=== PATIENT | male | born 1960 | race Two or more races ===

== ENCOUNTER 2020-09-15 09:01 | Inpatient (IN) | payer OTHER ==
[~2020-09-15] VITALS: Ht 167.6 cm; Wt 98.4 kg
[2020-09-15] MEDS ORDERED: ACETAMINOPHEN 325 MG TAB PO PRN (09:15)
[2020-09-15] MEDS: ENOXAPARIN SOD 40 MG/0.4 ML SYRINGE SC SCH ×2 (10:00→13:33)
[2020-09-15] MEDS ORDERED: LIDOCAINE 2%HCL (LOCAL ANESTH.) INJ 10ml MDV IJ ONE (10:45)
[2020-09-15] MEDS ORDERED: HYDROmorphone HCL 2 MG/ML VL IV ONE (10:45)
[2020-09-15] MEDS ORDERED: ONDANSETRON HCL 4 MG/2 ML VIAL IV PRN (13:15)
[2020-09-15] MEDS ORDERED: MORPHINE SULF INJ 2 MG/ML SYRINGE 1ML IV PRN (13:15)
[2020-09-15 13:57] LABS: Basophils # (auto) 0 10 ^3/uL (0-0.2); Basophils % (auto) 0.5 % (0.0-2.0); Eosinophils # (auto) 0.2 10 ^3/uL (0-0.8); Eosinophils % (auto) 1.8 % (0.0-7.0); Hematocrit 44.7 % (41.0-53.0); Lymphocytes # (auto) 1.9 10 ^3/uL (0.4-5.4); Lymphocytes % (auto) 22.8 % (10.0-50.0); Mean Corpuscular Hemoglobin 33.8 pg (28.0-32.0); Mean Corpuscular Hgb Conc. 35.8 g/dL (32.0-36.0); Mean Corpuscular Volume 94.5 fL (80.0-100.0); Monocytes # (auto) 0.8 10 ^3/uL (0-1.3); Monocytes % (auto) 9.3 % (0.0-12.0); Neutrophils # (auto) 5.5 10 ^3/uL (1.6-8.6); Neutrophils % (auto) 65.6 % (37.0-80.0); Nucleated Red Blood Cells % 0.2 %; Red Blood Cells 4.73 10^6/uL (4.5-5.90); White Blood Cell 8.4 10^3/uL (4.4-10.8)
[2020-09-15 14:12] LABS: INR 1.01 (0.9-1.15)
[2020-09-15 14:16] LABS: Albumin 4.1 g/dL (3.4-5.0); BUN/Creatinine Ratio 16.9; Calcium 8.5 mg/dL (8.5-10.1)
[2020-09-15 14:19] LABS: Bilirubin, Total 0.5 mg/dL (0.2-1.0); Total Protein 7.4 g/dL (6.4-8.2)
[2020-09-15 16:52] VITALS: BP 160/84
[2020-09-15 17:02] VITALS: BP 130/97
[2020-09-15] MEDS: MORPHINE SULF INJ 2 MG/ML SYRINGE 1ML IV PRN (21:43)
[2020-09-15 22:00] VITALS: BP 125/78
[2020-09-16] MEDS: MORPHINE SULF INJ 2 MG/ML SYRINGE 1ML IV PRN ×3 (02:42→07:08)
[2020-09-16 05:00] VITALS: BP 133/69
[2020-09-16 07:09] LABS: Basophils # (auto) 0 10 ^3/uL (0-0.2); Basophils % (auto) 0.4 % (0.0-2.0); Eosinophils # (auto) 0.2 10 ^3/uL (0-0.8); Eosinophils % (auto) 1.5 % (0.0-7.0); Hematocrit 43.8 % (41.0-53.0); Hemoglobin 15.2 g/dL (13.5-17.5); Lymphocytes # (auto) 2.1 10 ^3/uL (0.4-5.4); Lymphocytes % (auto) 19.4 % (10.0-50.0); Mean Corpuscular Hemoglobin 33.1 pg (28.0-32.0); Mean Corpuscular Hgb Conc. 34.7 g/dL (32.0-36.0); Mean Corpuscular Volume 95.3 fL (80.0-100.0); Monocytes # (auto) 1.1 10 ^3/uL (0-1.3); Monocytes % (auto) 9.9 % (0.0-12.0); Neutrophils # (auto) 7.4 10 ^3/uL (1.6-8.6); Neutrophils % (auto) 68.8 % (37.0-80.0); Nucleated Red Blood Cells % 0.1 %; Red Cell Distribution Width 12.6 % (11.8-14.3); White Blood Cell 10.8 10^3/uL (4.4-10.8)
[2020-09-16 07:21] LABS: Albumin 3.6 g/dL (3.4-5.0); Calcium 8.3 mg/dL (8.5-10.1); Potassium 3.9 mmol/L (3.5-5.1)
[2020-09-16 07:24] LABS: BUN/Creatinine Ratio 23.5; Bilirubin, Total 0.6 mg/dL (0.2-1.0)
[2020-09-16 07:44] LABS: INR 1.05 (0.9-1.15); Partial Thromboplastin Time 28.1 sec (23.0-31.2)
[2020-09-16] MEDS: ENOXAPARIN SOD 40 MG/0.4 ML SYRINGE SC SCH (10:00)
[2020-09-16] MEDS ORDERED: ceFAZolin 1GM/50ML 100 ML IV ONE (11:54)
[2020-09-16] MEDS ORDERED: BUPIVACAINE 0.25% INJ 50ML VIAL ONE (13:21)
[2020-09-16] MEDS ORDERED: HYDROmorphone HCL 2 MG/ML VL ONE (14:42)
[2020-09-16] MEDS ORDERED: fentaNYL CITRATE 100 MCG/2 ML VL ONE (14:42)
[2020-09-16] MEDS ORDERED: MIDAZOLAM HCL 1MG/1ML-2 ML VIAL ONE (14:43)
[2020-09-16] MEDS ORDERED: GLYCOPYRROLATE 0.2 MG/ML 1ML VIAL ONE (14:47)
[2020-09-16] MEDS ORDERED: ONDANSETRON HCL 4 MG/2 ML VIAL ONE (14:47)
[2020-09-16] MEDS ORDERED: KETOROLAC TROMETH 30 MG/ML 1ML VIAL ONE (14:47)
[2020-09-16] MEDS ORDERED: LIDOCAINE 2% (LOCAL ANESTH.) PF 5ml SDV ONE (14:47)
[2020-09-16] MEDS ORDERED: DexAMETHasone SOD PHOS 10MG/1ML VIAL INJ ONE (14:47)
[2020-09-16] MEDS ORDERED: PROPOFOL 10 MG/ML 20 ML IV ONE (14:47)
[2020-09-16] MEDS: ceFAZolin 1GM/50ML 50 ML IV SCH ×2 (16:00→21:33)
[2020-09-16] MEDS ORDERED: HYDROmorphone HCL 2 MG/ML VL IV PRN (16:15)
[2020-09-16] MEDS ORDERED: ONDANSETRON HCL 4 MG/2 ML VIAL IV PRN (16:15)
[2020-09-16] MEDS: LACTATED RINGER'S 1,000 ML IV SCH (21:32)
[2020-09-16] MEDS: SODIUM CHLOR 0.9% PF (SALINE LOCK) 10ML VIAL/SYR IV SCH (21:33)
[2020-09-16] MEDS: OXYCODONE W/ ACETAMINOPHEN 5/325MG TABLET PO PRN (21:34)
[2020-09-16 22:00] VITALS: BP 127/75
[2020-09-17] MEDS: OXYCODONE W/ ACETAMINOPHEN 5/325MG TABLET PO PRN ×3 (01:51→13:46)
[2020-09-17] MEDS: LACTATED RINGER'S 1,000 ML IV SCH ×2 (03:15→10:40)
[2020-09-17] MEDS: ceFAZolin 1GM/50ML 50 ML IV SCH (03:16)
[2020-09-17 05:00] VITALS: BP 124/74
[2020-09-17] MEDS: SODIUM CHLOR 0.9% PF (SALINE LOCK) 10ML VIAL/SYR IV SCH ×2 (05:16→14:00)
[2020-09-17 09:00] VITALS: BP 136/79
[2020-09-17] MEDS: ENOXAPARIN SOD 40 MG/0.4 ML SYRINGE SC SCH (10:41)
[2020-09-17] MEDS ORDERED: IPRIH INH (11:36)
[2020-09-17] MEDS ORDERED: ALBU108A5 IN (11:36)
[2020-09-17 12:58] VITALS: BP 121/66
[2020-09-17 13:03] VITALS: BP 121/66
== END 2020-09-17 16:00 | DRG 512 ==
LOC: ER 09:01 → TELE 13:01 → WEST WING 14:32
PROVIDERS: ADMIT Internal Medicine; ATTEND Internal Medicine
PROC: 01N50ZZ Release Median Nerve, Open Approach (ICD-10-PCS; 2020-09-16)
PROC: 0XQQ0ZZ Repair Right Middle Finger, Open Approach (ICD-10-PCS; 2020-09-16)
PROC: 0PSH04Z Reposition Right Radius with Internal Fixation Device, Open Approach (ICD-10-PCS; principal; 2020-09-16 14:40)
DX: S52.571A Other intraarticular fracture of lower end of right radius, initial encounter for closed fracture (principal); M71.341 Other bursal cyst, right hand; J44.9 Chronic obstructive pulmonary disease, unspecified; S61.218A Laceration without foreign body of other finger without damage to nail, initial encounter; F14.90 Cocaine use, unspecified, uncomplicated; G56.01 Carpal tunnel syndrome, right upper limb; Z20.822 Contact with and (suspected) exposure to COVID-19; W10.2XXA Fall (on)(from) incline, initial encounter; Y93.89 Activity, other specified; Y92.89 Other specified places as the place of occurrence of the external cause; Y99.8 Other external cause status
CPT/HCPCS: 25605; 36415; 71045; 73070; 73080; 73100; 76000; 80053; 85025; 85610; 85730; 86850; 86900; 86901; 87081; 87426; 96374; 96375; G0378; J0690; J1100; J1885; J2001; J2250; J2405; J2704; J3490